=== PATIENT | male | born 1985 | race Caucasian/White ===

== ENCOUNTER 2017-01-17 21:22 | Emergency (ER) | payer BC ==
[2017-01-17 21:44] VITALS: BP 171/92
--- NOTE | 2017-01-17 22:09 | EDM.PDOC ---
ED HPI GENERAL MEDICAL PROBLEM - General Chief Complaint: ENT Problem Stated Complaint: strep Time Seen by Provider: 01/17/17 21:32 Source of Information: Reports: Patient History Limitations: Reports: No Limitations - History of Present Illness INITIAL COMMENTS - FREE TEXT/NARRATIVE: 31 yo male presents with sore throat. pain started last evening and worsened throughout the day. mild nasal congestion and post nasal drip. hx of herpes simplex. denies headache. general fatigue. has been treating with ibuprofen. - Related Data Allergies Allergy/AdvReac Type Severity Reaction Status Date / Time acetaminophen [From Vicodin] AdvReac Syncope Verified 02/02/16 15:52 hydrocodone bitartrate AdvReac Syncope Verified 02/02/16 15:52 [From Vicodin] Home Meds: Home Meds Minocycline [Minocin] 100 mg PO DAILY 04/18/13 [History] Past Medical History Genitourinary History: Reports: Renal Calculus Musculoskeletal History: Reports: Other (See Below) Other Musculoskeletal History: bilateral knee problems - politeus Other Dermatologic History: neck folliculitis Social & Family History - Tobacco Use Smoking Status *Q: Never Smoker Second Hand Smoke Exposure: No - Caffeine Use Caffeine Use: Reports: Soda - Alcohol Use Days Per Week of Alcohol Use: 1 Number of Drinks Per Day: 2 Total Drinks Per Week: 2 - Recreational Drug Use Recreational Drug Use: No ED ROS ENT - Review of Systems Review Of Systems: See Below Constitutional: Reports: Chills, Fatigue HEENT: Reports: Rhinitis, Throat Pain, Throat Swelling Respiratory: Denies: Shortness of Breath, Wheezing Cardiovascular: Denies: Chest Pain ED EXAM, ENT - Physical Exam Exam: See Below Exam Limited By: No Limitations General Appearance: Alert, WD/WN, No Apparent Distress Ears: Normal External Exam, Normal Canal, Hearing Grossly Normal, Normal TMs Nose: Normal Inspection, Clear Rhinorrhea, Injected Turbinates Mouth/Throat: Oral Ulcers, Other (herpatic lesions to right tonsil and uvula) Head: Atraumatic, Normocephalic Neck: Supple, Full Range of Motion, Lymphadenopathy (R), Lymphadenopathy (L) Respiratory/Chest: No Respiratory Distress, Lungs Clear, Normal Breath Sounds, No Accessory Muscle Use, Chest Non-Tender. No: Crackles, Rhonchi, Wheezing Cardiovascular: Regular Rate, Rhythm GI/Abdominal: Soft, Non-Tender Skin: Warm, Dry, Intact. No: Rash Course - Vital Signs Last Recorded V/S: Last Vital Signs Temp 37.6 C 01/17/17 21:41 Pulse 105 H 01/17/17 21:41 Resp 14 01/17/17 21:41 BP 171/92 H 01/17/17 21:41 Pulse Ox 96 01/17/17 21:41 - Orders/Labs/Meds Orders: Active Orders 24 hr Category Date Time Status CULTURE STREP A CONFIRMATION [RM] Stat Lab 01/17/17 21:31 Results STREP SCRN A RAPID W CULT CONF [] Stat Lab 01/17/17 21:31 Results Departure - Departure Time of Disposition: 22:07 Disposition: Home, Self-Care 01 Condition: Good Clinical Impression: Herpes simplex - Discharge Information Instructions: Pharyngitis Referrals: Cruz Sierra MD [Primary Care Provider] - Forms: ED Department Discharge Additional Instructions: acyclovir 400 mg TID for 7 days gargle with salt water for pain control ibuprofen 400-600 mg every 6 hours for pain - My Orders Last 24 Hours: My Active Orders 01/17/17 21:31 CULTURE STREP A CONFIRMATION [RM] Stat STREP SCRN A RAPID W CULT CONF [RM] Stat - Assessment/Plan Last 24 Hours: My Active Orders 01/17/17 21:31 CULTURE STREP A CONFIRMATION [RM] Stat STREP SCRN A RAPID W CULT CONF [RM] Stat
== END 2017-01-17 22:27 | disposition home or self-care (01) ==
LOC: JP.ED 21:22
DX: B00.9 Herpesviral infection, unspecified (principal); Z79.1 Long term (current) use of non-steroidal anti-inflammatories (NSAID); Z88.5 Allergy status to narcotic agent; Z88.6 Allergy status to analgesic agent
CPT/HCPCS: 87081; 87430; 99284

== ENCOUNTER 2019-06-15 15:50 | Emergency (ER) | payer BC ==
[2019-06-15] MEDS ORDERED: Ketorolac 30 MG/ML SDV IVPUSH ONE (16:05)
--- NOTE | 2019-06-15 16:06 | EDM.PDOC ---
<Zenia Rashid - Last Filed: 06/15/19 17:52> ED HPI GENERAL MEDICAL PROBLEM - General Chief Complaint: Flank Pain Stated Complaint: KINDEY STONE RT SIDE Time Seen by Provider: 06/15/19 16:06 Source of Information: Reports: Patient History Limitations: Reports: No Limitations - History of Present Illness INITIAL COMMENTS - FREE TEXT/NARRATIVE: pt is having severe rt fank pain. He has had many kidney stones and this defintely feels like one. He has not seen any blood in the urine. Onset: Sudden Duration: Hour(s): Location: Reports: Abdomen, Other ( rt flank area. ) Associated Symptoms: Reports: Nausea/Vomiting, Other (pt did feel nauseated. ) Right Flank Pain Score (Numeric/FACES): 7 - Related Data Allergies Allergy/AdvReac Type Severity Reaction Status Date / Time acetaminophen [From Vicodin] AdvReac Syncope Verified 06/15/19 15:56 hydrocodone bitartrate AdvReac Syncope Verified 06/15/19 15:56 [From Vicodin] Home Meds: Home Meds Minocycline [Minocin] 100 mg PO DAILY 04/18/13 [History] Past Medical History Genitourinary History: Reports: Renal Calculus Musculoskeletal History: Reports: Other (See Below) Other Musculoskeletal History: bilateral knee problems - politeus Other Dermatologic History: neck folliculitis Social & Family History - Caffeine Use Caffeine Use: Reports: Soda ED ROS GENERAL - Review of Systems Review Of Systems: See Below Constitutional: Reports: Diaphoresis HEENT: Reports: No Symptoms Respiratory: Reports: No Symptoms Cardiovascular: Reports: No Symptoms Endocrine: Reports: No Symptoms GI/Abdominal: Reports: Abdominal Pain, Other (pt has pain in the rt flank area. ) Musculoskeletal: Reports: No Symptoms Skin: Reports: No Symptoms Neurological: Reports: No Symptoms ED EXAM, GI/ABD - Physical Exam Exam: See Below Text/Narrative:: pt arrived with severe flank pain in the rt side. He has a long history of kidney stones. Exam Limited By: No Limitations General Appearance: Alert, Anxious, Severe Distress Ears: Normal TMs Nose: Normal Inspection Throat/Mouth: Normal Inspection Head: Atraumatic Neck: Normal Inspection Respiratory/Chest: No Respiratory Distress Cardiovascular: Regular Rate, Rhythm GI/Abdominal Exam: Other (pain in rt flank area.) (Male) Exam: Deferred Rectal (Males) Exam: Deferred Back Exam: Normal Inspection Extremities: Normal Inspection Neurological: Alert, Oriented, Normal Cognition Course - Vital Signs Last Recorded V/S: Last Vital Signs Temp 36.8 C 06/15/19 17:24 Pulse 67 06/15/19 17:24 Resp 16 06/15/19 17:24 BP 136/87 06/15/19 17:24 Pulse Ox 99 06/15/19 17:24 - Orders/Labs/Meds Orders: Active Orders 24 hr Category Date Time Status Sodium Chloride 0.9% [Normal Saline] 1,000 ml Med 06/15/19 16:15 Active IV ASDIRECTED Sodium Chloride 0.9% [Normal Saline] 1,000 ml Med 06/15/19 17:15 Active IV ASDIRECTED Medication Orders Sodium Chloride (Normal Saline) 1,000 mls @ 999 mls/hr IV ASDIRECTED SAVANA Last Admin: 06/15/19 16:15 Dose: 999 mls/hr Sodium Chloride (Normal Saline) 1,000 mls @ 999 mls/hr IV ASDIRECTED SAVANA Last Admin: 06/15/19 17:30 Dose: 999 mls/hr Labs: Laboratory Tests 06/15/19 06/15/19 06/15/19 Range/Units 16:10 16:10 17:21 WBC 13.9 H (4.5-11.0) K/uL RBC 5.47 (4.30-5.90) M/uL Hgb 16.7 H (12.0-15.0) g/dL Hct 47.3 (40.0-54.0) % MCV 87 (80-98) fL MCH 31 (27-31) pg MCHC 35 (32-36) % Plt Count 240 (150-400) K/uL Neut % (Auto) 75 H (36-66) % Lymph % (Auto) 20 L (24-44) % [place] % (Auto) 5 (2-6) % Eos % (Auto) 1 L (2-4) % Baso % (Auto) 0 (0-1) % Sodium 139 L (140-148) mmol/L Potassium 3.8 (3.6-5.2) mmol/L Chloride 103 (100-108) mmol/L Carbon Dioxide 24 (21-32) mmol/L Anion Gap 15.8 H (5.0-14.0) mmol/L BUN 18 (7-18) mg/dL Creatinine 1.4 H (0.8-1.3) mg/dL Est Cr Clr Drug Dosing 88.86 mL/min Estimated GFR (MDRD) 58 L (>60) Glucose 122 H (74-106) mg/dL Calcium 8.9 (8.5-10.1) mg/dL Urine Color [place] A (YELLOW) Urine Appearance Cloudy A (CLEAR) Urine pH 6.5 (5.0-8.0) Ur Specific [place] 1.025 (1.008-1.030) Urine Protein Trace H (NEGATIVE) mg/dL Urine Glucose (UA) Negative (NEGATIVE) mg/dL Urine Ketones Negative (NEGATIVE) mg/dL Urine Occult Blood Large H (NEGATIVE) Urine Nitrite Negative (NEGATIVE) Urine Bilirubin Negative (NEGATIVE) Urine Urobilinogen 0.2 (0.2-1.0) EU/dL Ur Leukocyte Esterase Negative (NEGATIVE) Urine RBC Semi-packed H (0-5) Urine WBC Not seen (0-5) Ur Epithelial Cells Not seen Amorphous Sediment Few Urine Bacteria Not seen Urine Mucus Not seen Meds: Medications Generic Name Dose Route Start Last Admin Trade Name Freq PRN Reason Stop Dose Admin Sodium Chloride 1,000 mls @ 999 mls/hr 06/15/19 16:15 06/15/19 16:15 Normal Saline IV 999 mls/hr ASDIRECTED SAVANA Administration Sodium Chloride 1,000 mls @ 999 mls/hr 06/15/19 17:15 06/15/19 17:30 Normal Saline IV 999 mls/hr ASDIRECTED SAVANA Administration Discontinued Medications Generic Name Dose Route Start Last Admin Trade Name Freq PRN Reason Stop Dose Admin Hydromorphone HCl 0.5 mg 06/15/19 16:50 06/15/19 16:56 Dilaudid IVPUSH 06/15/19 16:51 0.5 mg ONETIME ONE Administration Ketorolac Tromethamine 30 mg 06/15/19 16:05 06/15/19 16:14 Toradol IVPUSH 06/15/19 16:06 30 mg ONETIME ONE Administration Tamsulosin HCl 0.4 mg 06/15/19 17:49 Flomax PO 06/15/19 17:50 ONETIME ONE - Re-Assessments/Exams Free Text/Narrative Re-Assessment/Exam: 06/15/19 17:17 pt has a wbc of 13,000. His creatnine is 1.4. He is having severe rt flank pain. 06/15/19 17:53 cat scan of the abdoman shows a 4 mm stone with some hydro. The urine has alot of rbcs but does not look infected. He is quite dehydrated so will finish the 2nd liter of fluid. Departure - Departure Disposition: Home, Self-Care 01 Condition: Fair Clinical Impression: Ureteral calculus, right - Discharge Information Instructions: Kidney Stones, [id number] Referrals: Cruz Sierra MD [Primary Care Provider] - Forms: ED Department Discharge Care Plan Goals: push fluids, flomax .4 1 tab daily, torodol 10 mg q6h for pain, percocet 5/325 q6h prn for pain. rtc if pain should become unbearable, strain all urine. Sepsis Event Note - Focused Exam Vital Signs: Vital Signs Temp Pulse Resp BP Pulse Ox 06/15/19 17:24 36.8 C 67 16 136/87 99 06/15/19 16:17 36.4 C 68 24 H 138/88 98 06/15/19 16:03 36.4 C 68 24 H 138/88 98 Date Exam was Performed: 06/15/19 Time Exam was Performed: 17:52 <Valdemar Urbano - Last Filed: 06/15/19 18:17> Departure - Departure Time of Disposition: 18:30 - Discharge Information *PRESCRIPTION DRUG MONITORING PROGRAM REVIEWED*: No *COPY OF PRESCRIPTION DRUG MONITORING REPORT IN PATIENT DONNA: No Sepsis Event Note - Focused Exam Date Exam was Performed: 06/15/19 Time Exam was Performed: 18:16
[2019-06-15] MEDS ORDERED: Sodium Chloride 0.9% 1,000 ML IV SCH ×2 (16:15→17:15)
[2019-06-15] MEDS ORDERED: HYDROmorphone 0.5 MG/0.5 ML Syringe IVPUSH ONE (16:50)
[2019-06-15 17:24] VITALS: BP 136/87; PULSE 67
--- NOTE | 2019-06-15 17:43 | CRLCT ---
INDICATION: Right-sided stone TECHNIQUE: Axial images were obtained from the diaphragm to the pubic symphysis. Reformats were obtained in the coronal and sagittal plane. IV Contrast: None Oral Contrast: None COMPARISON: Abdomen and pelvis CT 11/05/2013 FINDINGS: Lower chest: Unremarkable. Liver: Diffusely decreased density of the liver consistent with fatty infiltration without focal lesion. Gallbladder and bile ducts: Unremarkable. No stones or inflammation. No biliary dilatation. Spleen: Unremarkable. Normal in size without mass. Pancreas: Unremarkable. No mass or inflammation. Adrenal glands: Unremarkable. No nodules. Kidneys: Nephrolithiasis with mild right hydronephrosis and a proximal right ureteral stone measuring 4 millimeters. Vasculature: Unremarkable. GI tract: Unremarkable. No dilated bowel or focal inflammation. Pelvis: Unremarkable. Bones: Unremarkable for age. IMPRESSION: 1. Nephrolithiasis with mild right hydronephrosis and proximal right ureteral stone measuring 4 millimeters. 2. Fatty infiltration of the liver. Please note that all CT scans at this facility use dose modulation, iterative reconstruction, and/or weight-based dosing when appropriate to reduce radiation dose to as low as reasonably achievable. Dictated by Elliott Fuentes MD @ Jun 15 2019 5:29PM Signed by Dr. Elliott Fuentes @ Jun 15 2019 5:41PM
[2019-06-15] MEDS ORDERED: Tamsulosin 0.4 MG Cap.ER PO ONE (17:49)
== END 2019-06-15 18:31 | disposition home or self-care (01) ==
LOC: JP.ED 15:50
DX: N13.2 Hydronephrosis with renal and ureteral calculous obstruction (principal); Z88.5 Allergy status to narcotic agent
CPT/HCPCS: 36415; 74176; 80048; 81001; 85025; 96361; 96374; 96375; 99284; A9270; J1170; J1885; J7030

== ENCOUNTER 2023-06-09 06:56 | Day surgery (SDC) | payer BC ==
[2023-06-09] MEDS: Lactated Ringers 1,000 ML IV SCH (07:16)
[2023-06-09] MEDS ORDERED: Propofol 200 MG/20 ML SDV ONE (07:40)
[2023-06-09] MEDS ORDERED: fentaNYL 100 MCG/2 ML SDV ONE (07:40)
[2023-06-09] MEDS ORDERED: Midazolam 1 MG/ML 2 ML SDV ONE (07:40)
[2023-06-09 10:08] VITALS: BP 120/60; PULSE 68
== END 2023-06-09 10:10 | disposition home or self-care (01) ==
LOC: JP.SDS 06:56
PROVIDERS: ATTEND Student in an Organized Health Care Education/Training Program
DX: R13.10 Dysphagia, unspecified (principal); K21.9 Gastro-esophageal reflux disease without esophagitis; K29.70 Gastritis, unspecified, without bleeding; K31.7 Polyp of stomach and duodenum; E78.5 Hyperlipidemia, unspecified
CPT/HCPCS: 43239; 88305; 88342; J2250; J2704; J3010; J7120